=== PATIENT | male | born 1960 | race Caucasian/White ===

== ENCOUNTER 2021-07-02 11:13 | Emergency (ER) | payer MEDICARE, MEDICAID, SELFPAY ==
--- NOTE | ~2021-07-02 | CT_ITS ---
EXAMINATION: CT PELVIS WITH CONTRAST CLINICAL INFORMATION: Perianal abscess. COMPARISON: None TECHNIQUE: Helical scanning was performed with submillimeter collimation through the pelvis with the use of oral contrast and during bolus intravenous injection of 85 mL of Omnipaque 350 intravenous contrast. Sagittal and coronal multiplanar 2-D reconstructions were obtained. This CT examination was performed using dose optimization techniques as appropriate, variously including the following: *Automated exposure control *Adjustment of mA and/or kV according to patient size (this includes techniques or standardized protocols for targeted exams where dose is matched to indication/reason for exam; i.e. extremities or head) *Use of iterative reconstruction technique DLP: 274 mGy-cm FINDINGS: PELVIS: There is a fluid collection seen in the left buttock just deep to the skin slightly posterior and inferior to the anus suggestive of a perianal abscess. This measures 2 x 3.5 x 4 cm in transverse AP and longitudinal dimension. This has a slightly thickened wall. No fistula or sinus tract is seen. The rectum is normal appearing. There is diverticulosis of the colon. Visualized bowel is otherwise unremarkable. The appendix is unremarkable. No ascites or adenopathy is seen. No hernia is seen. 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 There is an old healed right femoral shaft fracture. There are degenerative changes at the hip joints and CT/CT pelvis w con IMPRESSION: 2 x 3.5 x 4 cm left perianal abscess. No fistula or sinus tract is seen..
[2021-07-02 11:28] VITALS: BP 122/82; PULSE 93; RESP 18; TEMP 37.2; O2SAT 95; BMI 26.4
[2021-07-02 12:23] LABS: MANUAL DIFF FLAG NO
[2021-07-02 12:24] LABS: Basophils Percent Auto 0.3 % (0-2); Eosinophils Absolute Auto 0.2 X10*3/uL (0.0-0.4); Eosinophils Percent Auto 1.4 % (0-4); Hematocrit 40.8 % (42-52); Imm Gran Abs Auto 0.03 X10*3/uL (0.00-0.03); Imm Gran Pct Auto 0.3 % (0.0-0.4); Lymphocytes Absolute Auto 1.5 X10*3/uL (1.2-4.9); Lymphocytes Percent Auto 14.1 % (20-40); Mean Corpuscular HGB Conc 34.3 g/dl (31.0-36.0); Mean Corpuscular Hemoglobin 30.2 pg (27.0-33.0); Mean Corpuscular Volume 87.9 fL (80-98); Mean Platelet Volume 8.8 fL (9.4-12.4); Monocytes Percent Auto 9.5 % (2-11); Neutrophils Absolute Auto 8.1 X10*3/uL (2.0-8.3); Neutrophils Percent Auto 74.4 % (45-73); Platelet Count 235 X10*3/uL (160-400); Red Blood Count 4.64 X10*6/uL (4.60-5.80); Red Cell Distribution Width 12.4 % (11.0-16.0); White Blood Count 10.9 X10*3/uL (4.8-10.8)
[2021-07-02] MEDS: 0.9 % Sodium Chloride 1,000 ML 999 ML IV (12:25)
--- NOTE | 2021-07-02 13:29 | ED.SKABFB ---
HPI - Skin/Abscess/Foreign Bdy General Chief complaint: Skin/Abscess/Foreign Body Stated complaint: abscess Time Seen by Provider: 07/02/21 11:46 Source: patient Mode of arrival: ambulatory Limitations: no limitations History of Present Illness HPI narrative: 60-year-old male presents with a perianal abscess that he noticed 5 days ago. Patient was wiping, and noticed it was painful. It hurts to sit. No fevers. Patient sees a PCP regularly, is on no daily medications. Does have a history of skin abscesses. Patient states he notices abscess in January, but then it went away. complaint: abscess/boil Onset (ago): day(s) (5) Tetanus up to date: yes Location: genitals Severity: moderate Severity scale (1-10): 5 Quality: aching Pain Consistency: constant Relieving factors: none Exacerbating factors: none Associated symptoms: denies other symptoms Treatments prior to arrival: none Related Data Previous Rx's Medication Instructions Recorded sulfamethoxazole 800 1 tab PO BID 7 Days #14 tab 07/02/21 mg-trimethoprim 160 mg tablet (Bactrim DS) Allergies Allergy/AdvReac Type Severity Reaction Status Date / Time No Known Allergies Allergy Verified 07/02/21 11:30 Review of Systems Constitutional: Constitutional: Denies body ache(s), Denies chills, Denies fatigue, Denies fever(s), Denies headache(s) and Denies malaise Eyes: Eyes: Denies blurry vision and Denies change in vision ENT: Denies dizziness, Denies otalgia, Denies headache(s) and Denies sore throat Cardiovascular: Cardiovascular: Denies chest pain, Denies syncope and Denies dyspnea Respiratory: Respiratory: Denies chest congestion, Denies cough and Denies dyspnea Gastrointestinal: Gastrointestinal: Denies abdominal pain, Denies melena, Denies hematochezia, Denies constipation, Denies GI cramping, Denies fecal incontinence, Denies diarrhea, Denies loose stools, Denies nausea, Denies vomiting and Denies hematemesis Genitourinary: Genitourinary: Denies difficulty urinating, Denies genital lesions, Denies genital pain, Denies dysuria, Denies flank pain, Denies scrotal swelling, Denies testicular mass, Denies testicular pain, Denies urinary frequency, Denies urinary hesitancy, Denies urinary incontinence and Denies urinary urgency Musculoskeletal: Musculoskeletal: Denies back pain and Denies tingling Integumentary/Breasts: Skin/Breast: Reports erythema, Reports rash and Reports skin swelling Neurologic: Denies confusion, Denies dizziness, Denies syncope, Denies headache(s), Denies Sensory deficit (Neuro), Denies tingling and Denies paresthesias Psychiatric: Psychiatric: Denies confusion Endocrine: Endocrine: Denies fatigue PMFSH Past Medical History Medical History (Updated 07/02/21 @ 17:50 by GWEN Mercedes) No known health problems Social History Social History Advance Directives: No Advance Directives Information Provided: No Physical Exam Vital Signs: Vital Signs: Last Vital Signs Temp 98.3 F 07/02/21 15:11 Pulse 72 07/02/21 15:11 Resp 20 07/02/21 15:11 BP 133/71 07/02/21 15:11 Pulse Ox 98 07/02/21 15:11 Body Mass Index 26.4 Const: General: No confusion Nutritional Appearance: well nourished Orientation/consciousness: No confusion Limitations: no limitations HENMT: Head: Yes normal to inspection, Yes normocephalic and Yes atraumatic Ears: hearing grossly normal bilaterally, external ears normal, TM's normal bilaterally and EAC's normal General nose exam: Normal external nose present Face and sinus: Yes normal facial exam and Yes sinuses nontender Mouth: Normal oral and palatal mucosa present Throat: Yes posterior oropharynx normal Eyes: Conjunctivae: conjunctivae normal Pupils: Equal, round and reactive pupils present EOM: EOMs intact bilaterally Neck: Neck: Yes full ROM, Yes no lymphadenopathy and Yes supple Resp: Effort & Inspection: normal respiratory effort and able to speak in complete sentences Auscultation: clear to auscultation bilaterally, no crackles, no rales, no rhonchi and no wheezes Cardio: Rate: regular rate Rhythm: regular rhythm Heart sounds: S1 normal heart sound present and S2 normal heart sound present GI: Inspection: Yes normal to inspection Palpation (GI): Soft to palpation, nontender, no guarding and not rigid Percussion: Yes normal to percussion Auscultation: normal bowel sounds : Penis: normal penis Meatus: meatus normal Scrotum: scrotum normal Testes: Testes normal, testicular lie normal and no epidiymal tenderness Skin: Other: 2 cm x 6 cm fluctuant abscess between patient's anus and scrotum. Skin is red and shiny. Induration under skin Neuro: General: No confusion Cranial nerves: Yes Equal, round and reactive pupils present Sensory Exam: No Sensory deficit (Neuro) Extrem: General: Yes normal to inspection and Yes full ROM Psych: Appearance: grossly normal Affect: normal affect Attitude: cooperative Thought process: Normal thought process present Course Course Course Narrative: 60-year-old male with no medical problems presents for perianal abscess. Abscess started about 5 days ago. 2 cm x 5 cm linear fluctuant shiny and raised area and patient's perineum. Will get pelvic CT, and reassessed. CT pelvis: There is a fluid collection seen in the left buttock just deep to the skin slightly posterior and inferior to the anus suggestive of a perianal abscess. This measures 2 x 3.5 x 4 cm in transverse AP and longitudinal dimension. This has a slightly thickened wall. No fistula or sinus tract is seen. The rectum is normal appearing Did I and D, copious amount of hoang white fluid expressed, patient diary seizure well. Place patient on Bactrim, return for check in 2 days. MDM - Skin/Abscess/Foreign Bdy Lab Data Result diagrams: 07/02/21 12:17 07/02/21 14:14 Labs: Lab Results 07/02/21 07/02/21 Range/Units 12:17 14:14 WBC 10.9 H (4.8-10.8) X10*3/uL RBC 4.64 (4.60-5.80) X10*6/uL Hgb 14.0 (14.0-18.0) g/dl Hct 40.8 L (42-52) % MCV 87.9 (80-98) fL MCH 30.2 (27.0-33.0) pg MCHC 34.3 (31.0-36.0) g/dl RDW 12.4 (11.0-16.0) % Plt Count 235 (160-400) X10*3/uL MPV 8.8 L (9.4-12.4) fL Immature Gran % (Auto) 0.3 (0.0-0.4) % Neut % (Auto) 74.4 H (45-73) % Lymph % (Auto) 14.1 L (20-40) % [place] % (Auto) 9.5 (2-11) % Eos % (Auto) 1.4 (0-4) % Baso % (Auto) 0.3 (0-2) % Lymph # (Auto) 1.5 (1.2-4.9) X10*3/uL [place] # (Auto) 1.0 (0.1-1.2) X10*3/uL Eos # (Auto) 0.2 (0.0-0.4) X10*3/uL Baso # (Auto) 0.0 (0.0-0.2) X10*3/uL Abs Immat Gran (auto) 0.03 (0.00-0.03) X10*3/uL Absolute Neuts (auto) 8.1 (2.0-8.3) X10*3/uL Absolute Nucleated RBC 0.000 (0.0-0.012) X10*3/uL Nucleated RBC % (auto) 0.0 (0.0-0.2) /100WBC Sodium 139 (135-145) mmol/L Potassium 4.3 (3.3-5.1) mmol/L Chloride 106 (96-108) mmol/L Carbon Dioxide 26 (22-29) mmol/L Anion Gap 11 L (12-20) BUN 13 (9-16) mg/dL Creatinine 0.79 (0.5-1.4) mg/dL Estim Creat Clear Calc 101.9 Estimated GFR > 60 Random Glucose 103 (60-115) mg/dL Calcium 8.8 (8.4-10.2) mg/dL Total Bilirubin 0.6 (0.0-1.0) mg/dL AST 32 (5-37) U/L ALT 36 (0-40) U/L Alkaline Phosphatase 126 H (39-117) U/L Total Protein 6.7 (6.5-8.0) g/dL Albumin 4.1 (3.5-5.0) g/dL Procedures Abscess I/D Site: dusty-rectal Local Anesthetic: lidocaine 1% Amount of anesthesia used (mL): 6 Technique: incised with blade Amount of fluid expressed (mL): 7 Sent for culture/gram staining?: No Irrigation: No Packing used?: iodoform Discharge Plan Discharge Clinical Impression: Abscess of skin or subcutaneous tissue Qualifiers: Site of cutaneous abscess: unspecified site Qualified Code(s): L02.91 - Cutaneous abscess, unspecified Patient Disposition: Home, Self-Care Instructions: Abscess Follow-up (ED), Abscess Incision and Drainage (DC) Additional Instructions: Please fill your prescription for Bactrim and take tonight. Please leave the dressing in place until your seen Monday evening after 5:00 p.m. in the emergency room. If you have fevers, worsening pain, worsening discharge, please return earlier. If for some reason the dressing falls often the packing falls out, washed with soap and water, and return for recheck in 2 days. Prescriptions: New sulfamethoxazole-trimethoprim [Bactrim DS] 800-160 mg tablet 1 tab PO BID 7 Days Qty: 14 RF: 0
[2021-07-02 14:49] LABS: Alanine Aminotransferase 36 U/L (0-40); Albumin Level 4.1 g/dL (3.5-5.0); Alkaline Phosphatase 126 U/L (39-117); Anion Gap 11 (12-20); Aspartate Amino Transferase 32 U/L (5-37); Bilirubin Total 0.6 mg/dL (0.0-1.0); Blood Urea Nitrogen 13 mg/dL (9-16); Calcium 8.8 mg/dL (8.4-10.2); Carbon Dioxide 26 mmol/L (22-29); Chloride 106 mmol/L (96-108); Creatinine Clr Calc Pharmacy 101.9; Estimated Glomerular Filt Rate > 60; Glucose Random 103 mg/dL (60-115); Potassium 4.3 mmol/L (3.3-5.1); Sodium 139 mmol/L (135-145); Total Protein 6.7 g/dL (6.5-8.0)
[2021-07-02 15:11] VITALS: BP 133/71; PULSE 72; RESP 20; TEMP 36.8; O2SAT 98
[2021-07-02] MEDS: iohexoL 350 MG/ML 100 ML INFUS..BTL IV (15:47)
[2021-07-02] MEDS: Lidocaine HCl 1 % 20 ML VIAL INFILTRATI (18:23)
[2021-07-02] MEDS: Ibuprofen 800 MG TABLET PO (18:33)
[2021-07-02] MEDS: Acetaminophen 325 MG TABLET 950 MG PO (18:35)
== END 2021-07-02 18:39 | disposition home or self-care (01) ==
PROVIDERS: Physician Assistant; Emergency Provider Emergency Medicine; PCP Pediatrics
DX: L02.91 Cutaneous abscess, unspecified (principal); R10.2 Pelvic and perineal pain
CPT/HCPCS: 10060; 36415; 72193; 80053; 85025; 96360; 99284; Q9967

== ENCOUNTER 2021-07-04 17:29 | Emergency (ER) | payer MEDICARE, MEDICAID, SELFPAY ==
[2021-07-04 17:40] VITALS: BP 152/87; PULSE 86; RESP 16; TEMP 36.9; O2SAT 97; BMI 26.4
== END 2021-07-04 19:43 | disposition left against medical advice (07) ==
PROVIDERS: Emergency Provider Emergency Medicine; PCP Pediatrics
DX: Z48.00 Encounter for change or removal of nonsurgical wound dressing (principal)
CPT/HCPCS: 99282